=== PATIENT | female | born 1970 | race Caucasian/White ===

== ENCOUNTER 2016-07-17 22:25 | Emergency (ER) | payer BC ==
[2016-07-17] MEDS ORDERED: DIAZEPAM 5 MG TABLET ONE (23:49)
== END 2016-07-18 00:25 | disposition home or self-care (01) ==
LOC: ED 22:25
DX: F41.9 Anxiety disorder, unspecified (principal); R07.9 Chest pain, unspecified; R06.02 Shortness of breath; I10 Essential (primary) hypertension; E11.9 Type 2 diabetes mellitus without complications
CPT/HCPCS: 99283 ×2; 93005; A9270